=== PATIENT | female | born 1990 | race Caucasian/White ===

== ENCOUNTER 2019-01-24 13:46 | Inpatient (IN) | payer OTHER ==
[~2019-01-24] VITALS: Ht 162.6 cm; Wt 68.6 kg
[2019-01-24 13:49] VITALS: Ht 162.6 cm; Wt 68.6 kg
--- NOTE | 2019-01-24 14:23 | NUR ---
LAB BLOOD DRAW COMPLETED
--- NOTE | 2019-01-24 14:30 | NUR ---
PT AMBULATORY TO BATHROOM WITH NO PROBLEM
[2019-01-24 14:31] LABS: BASOPHIL % 0.9 % (0-2); PLATELET COUNT 213 x10^3mcL (130-400); RED CELL DISTRIBUTION WIDTH 12.5 % (11.5-14.5)
--- NOTE | 2019-01-24 14:33 | NUR ---
PT BACK TO ROOM WITH NO INCIDENT
--- NOTE | 2019-01-24 14:39 | NUR ---
PORTABLE CXR AT BEDSIDE
[2019-01-24 14:40] LABS: CALCIUM 8.9 mg/dL (8.5-10.1); CARBON DIOXIDE 28.3 mmol/L (21-32); CHLORIDE SERUM 103 mmol/L (98-107); CREATININE SERUM 0.6 mg/dL (0.6-1.0); GFR1 > 60 mL/min; GLUCOSE SERUM 97 mg/dL (74-106); POTASSIUM SERUM 3.7 mmol/L (3.5-5.1); SODIUM SERUM 139 mmol/L (136-145)
[2019-01-24 14:57] LABS: ALBUMIN 4.3 g/dL (3.4-5.0); ALKALINE PHOSPHATASE 74 U/L (46-116); ALT/SGPT 35 U/L (14-59); AST/SGOT 21 U/L (15-37); BILIRUBIN TOTAL 0.43 mg/dL (0.20-1.00); CHOLESTEROL 191 mg/dL (<200); LIPASE 167 IU/L (73-393); T4(THYROXINE) 8.2 ug/dL (4.7-13.3)
[2019-01-24 15:00] LABS: UA SPECIFIC GRAVITY >=1.030 (1.005-1.035); microscopic required? YES; urine erythrocyte 1+ (NEGATIVE)
[2019-01-24 15:03] LABS: HDL CHOLESTEROL 68 mg/dL (40-60); TOTAL PROTEIN, SERUM 8.3 g/dL (6.4-8.2)
[2019-01-24 15:14] LABS: AMPHETAMINE QUAL UR NONE DETECTED (See below)
--- NOTE | 2019-01-24 16:09 | NUR ---
PT LYING IN BED COMFORTABLY NO DISTRESS. NO FURTHER ORDERS AT THIS TIME
--- NOTE | 2019-01-24 16:50 | NUR ---
REPORT GIVEN TO JEFFERSON OCHOA RESUMING CARE OF PT.
--- NOTE | 2019-01-24 16:55 | NUR ---
ATIVAN OFFERED ORDERED HOWEVER PT DECLINED AT THIS TIME.
--- NOTE | 2019-01-24 17:08 | NUR ---
RECEIVED PT FROM ED VIA [facility], CAME IN DUE TO CHEST PAIN RADIATING TO THE SHOULDERS AND BUE THAT STARTED AT 10 AM TODAY. AAOX4. DENIES HEADACHE/DIZZINESS. ABLE TO FOLLOW COMMANDS. NO SOB NOTED, LUNG SOUNDS CTA, O2 SAT=97%, RA. DENIES CHEST PAIN/PRESSURE, NSR ON THE MONITOR. DENIES ABDOMINAL DISCOMFORT. BOWEL SOUNDS ACTIVE. VOIDS. IV SITE ON THE RAC GAUGE 22 IS PATENT AND INTACT. STATED THAT SHE HAS 5/10 PRESSURE PAIN ON BILATERAL SHOULDERS AND MILD ANXIETY. PT STATED THAT SHE DOES NOT NEED ANY MEDICATIONS FOR PAIN OR ANXIETY AT THIS TIME. SIDE RAILS UPX2. CALL LIGHT ON REACH. ENDORSED TO PRIMARY NURSE JEFFERSON FOR CONTINUITY OF CARE
[2019-01-24 17:18] VITALS: BP 119/68
--- NOTE | 2019-01-24 18:45 | NUR ---
PT IS SITTING UP IN BED EATING DINNER. PT LOOKS TO BE IN NO ACUTE DISTRESS AT THIS TIME AND DENIES ANY PAIN. IV SITE PATENT WITH NO SIGNS OF ERYTHEMA OR SWELLING. RESPIRATIONS EVEN AND UNLABORED ON ROOM AIR. CALL LIGHT WITHIN REACH. WILL ENDORSE TO ONCOMING SHIFT.
--- NOTE | 2019-01-24 19:20 | NUR ---
RECEIVED PT FROM PREVIOUS SHIFT NURSE. PT AOX4, DENIES DONOVAN/DIZZINESS AT THIS TIME. ON TELE #8, READING NSR, HR 95. DENIES CP/PRESSURE. DENIES SOB/DIFFICULTY BREATHING, ON RA. IV TO RAC, INTACT AND PATENT. BED IN LOWEST POSITION. CALL LIGHT WITHIN REACH. WILL CONTINUE TO MONITOR.
[2019-01-24 19:42] VITALS: BP 108/70
--- NOTE | 2019-01-25 03:34 | NUR ---
PT RESTING IN BED. RR EVEN AND UNLABORED. IN NO ACUTE DISTRESS. CALL LIGHT WITHIN REACH. BED IN LOWEST POSITION. WILL CONTINUE TO MONITOR.
[2019-01-25 04:15] VITALS: BP 108/65
[2019-01-25 06:49] LABS: BASOPHIL % 0.9 % (0-2); PLATELET COUNT 172 x10^3mcL (130-400); RED CELL DISTRIBUTION WIDTH 12.7 % (11.5-14.5)
--- NOTE | 2019-01-25 07:10 | NUR ---
RECEIVED PT FROM NIGHT NURSE. PT IS LAYING DOWN IN BED WITH HOB. PT LOOKS TO BE IN NO ACUTE DISTRESS AT THIS TIME AND DENIES ANY PAIN. IV SITE PATENT WITH NO SIGNS OF ERYTHEMA OR SWELLING. TELE MONITOR PRESENT. RESPIRATIONS EVEN AND UNLABORED ON ROOM AIR. CALL LIGHT WITHIN REACH. BED IN LOWEST POSITION, WILL CONTINUE TO MONITOR.
[2019-01-25 07:35] LABS: CALCIUM 8.4 mg/dL (8.5-10.1); CHLORIDE SERUM 103 mmol/L (98-107); CREATININE SERUM 0.6 mg/dL (0.6-1.0); GFR1 > 60 mL/min; GLUCOSE SERUM 90 mg/dL (74-106); MAGNESIUM 1.8 mg/dL (1.8-2.4); PHOSPHOROUS 3.1 mg/dL (2.5-4.9); POTASSIUM SERUM 3.7 mmol/L (3.5-5.1); SODIUM SERUM 138 mmol/L (136-145)
[2019-01-25 08:04] VITALS: BP 102/60
[2019-01-25] MEDS ORDERED: PAXIL10 MG PO ×2 (10:58→12:06)
[2019-01-25 11:59] VITALS: BP 112/55
[2019-01-25 12:56] VITALS: BP 112/55
--- NOTE | 2019-01-25 14:55 | NUR ---
PT AWAKE, ALERT AND ORIENTED AT TIME OF DISCHARGE. PT LOOKED TO BE IN NO ACUTE DISTRESS AND DENIES ANY PAIN AT TIME OF DISCHARGE. PT DISCHARGE HOME AND WALKED TO [facility] ACCOMPANIED BY NURSE WITH ADITYA IN HAND. 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 INFORMED PT TO SET UP A FOLLOW UP APPOINTMENT WITH PCP, PT VERBALIZED UNDERSTANDING OF INFORMATION. IV REMOVED AND CATHETER FULLY INTACT. TELE MONITOR REMOVED AND RETURNED TO TELE STATION. ALL QUESTIONS AND CONCERNS ADDRESSED. WILL CONTINUE TO MONITOR.
== END 2019-01-25 14:53 | disposition home or self-care (01) | DRG 203 ==
LOC: ED 13:46 → DU 16:21
PROVIDERS: Emergency Medicine; ADMIT Internal Medicine
DX: R07.89 Other chest pain (principal); E66.9 Obesity, unspecified; F41.9 Anxiety disorder, unspecified; F41.0 Panic disorder [episodic paroxysmal anxiety]; Z68.33 Body mass index [BMI] 33.0-33.9, adult; Z23 Encounter for immunization
CPT/HCPCS: 83880; 85378; 90658; G0378; Q0092